=== PATIENT | male | born 1945 | race Caucasian/White ===

== ENCOUNTER 2022-05-17 18:23 | Inpatient (IN) | payer MEDICARE ==
[2022-05-17] MEDS ORDERED: Ondansetron ODT 4 MG TAB PO PRN (21:04)
[2022-05-17] MEDS ORDERED: Ondansetron PF 4 MG/2 ML Vial IVP PRN (21:04)
[2022-05-17] MEDS ORDERED: Acetaminophen 650 MG Suppository PR PRN (21:04)
[2022-05-17] MEDS ORDERED: Bisacodyl 5 MG TAB PO PRN (21:04)
[2022-05-17] MEDS ORDERED: Guaifenesin DM 100-10/5 ML UDCUP PO PRN (21:04)
[2022-05-17] MEDS: Sodium Chloride 0.9% 1,000 ML IV SCH (21:52)
[2022-05-17] MEDS ORDERED: Methocarbamol 500 MG TAB PO PRN (22:50)
[2022-05-17] MEDS ORDERED: Acetaminophen/Codeine 30-300mg Tablet PO PRN (22:51)
[2022-05-17] MEDS ORDERED: Gabapentin 300 MG CAP PO SCH (23:00)
[2022-05-17 23:17] VITALS: BMI 16.1
[2022-05-18] MEDS: cefTRIAXone\\ROCEPHIN 1 GM in Sodium Chloride 0.9% 100 ML IVPB SCH (04:39)
[2022-05-18 05:25] LABS: #Eosinphils 0.5 thou/uL (0.0-0.7); #Lymphocytes 1.2 thou/uL (1.20-3.40); #Monocytes 0.6 thou/uL (0.11-0.59); #Neutrophils 3.8 thou/uL (1.40-6.50); %Basophils 0.4 % (0.0-1.0); %Eosinophils 7.7 % (0.0-10.0); %Lymphocytes 19.4 % (21.0-51.0); %Monocytes 10.2 % (0.0-10.0); %Neutrophils 62.3 % (42.0-75.0); Hemoglobin 10.7 g/dL (14.0-18.0); Mean Corpuscular HGB CONC 33.3 g/dL (32.0-36.0); Mean Corpuscular Hemoglobin 32.1 pg (27.0-31.0); Mean Corpuscular Volume 96.5 fL (78.0-98.0); Mean Platelet Volume 7.6 fL (7.4-10.4); Platelet Count 227 thou/uL (130-400); Red Blood Cell (RBC) Count 3.34 mill/uL (4.70-6.10); White Blood Cell (WBC) Count 6.2 thou/uL (4.8-10.8)
[2022-05-18 06:10] LABS: Sodium 138 mmol/L (136-145)
[2022-05-18 06:11] LABS: Anion Gap 12 mmol/L (10-20); BUN (Urea Nitrogen) 20 mg/dL (8.4-25.7); Calc. Creatinine Clearance 52 mL/min (70-130); Calcium 9.2 mg/dL (7.8-10.44); Carbon Dioxide 25 mmol/L (23-31); Chloride 105 mmol/L (98-107); Estimated GFR 93; Glucose 96 mg/dL (83-110); Potassium 3.7 mmol/L (3.5-5.1)
[2022-05-18] MEDS: Gabapentin 300 MG CAP PO SCH ×2 (09:34→20:30)
[2022-05-18] MEDS ORDERED: Aspirin 81 mg Enteric Coated Tablet PO SCH (15:00)
[2022-05-18] MEDS: Midodrine HCl 5 MG TAB PO SCH ×2 (15:50→20:31)
[2022-05-18] MEDS: Sodium Chloride 0.9% 1,000 ML IV SCH (20:31)
[2022-05-18] MEDS ORDERED: Simvastatin 10 MG TAB PO SCH (21:00)
[2022-05-19] MEDS: cefTRIAXone\\ROCEPHIN 1 GM in Sodium Chloride 0.9% 100 ML IVPB SCH (04:38)
[2022-05-19] MEDS: Gabapentin 300 MG CAP PO SCH ×2 (08:56→21:24)
[2022-05-19] MEDS: Midodrine HCl 5 MG TAB PO SCH ×3 (08:56→21:24)
[2022-05-19] MEDS: NIFEdipine XL 60 MG TAB PO SCH (08:57)
[2022-05-19] MEDS: Aspirin 81 mg Enteric Coated Tablet PO SCH (08:57)
[2022-05-19] MEDS: Atorvastatin Calcium 10 MG TAB PO SCH (21:24)
[2022-05-20] MEDS: cefTRIAXone\\ROCEPHIN 1 GM in Sodium Chloride 0.9% 100 ML IVPB SCH (04:41)
[2022-05-20] MEDS: Midodrine HCl 5 MG TAB PO SCH ×3 (08:50→21:05)
[2022-05-20] MEDS: Aspirin 81 mg Enteric Coated Tablet PO SCH (08:51)
[2022-05-20] MEDS: Gabapentin 300 MG CAP PO SCH ×2 (08:51→21:05)
[2022-05-20] MEDS: NIFEdipine XL 60 MG TAB PO SCH (08:52)
[2022-05-20] MEDS: Atorvastatin Calcium 10 MG TAB PO SCH (21:05)
[2022-05-21] MEDS: cefTRIAXone\\ROCEPHIN 1 GM in Sodium Chloride 0.9% 100 ML IVPB SCH (03:51)
[2022-05-21] MEDS: Gabapentin 300 MG CAP PO SCH ×2 (08:20→20:45)
[2022-05-21] MEDS: Aspirin 81 mg Enteric Coated Tablet PO SCH (08:21)
[2022-05-21] MEDS: Midodrine HCl 5 MG TAB PO SCH ×3 (08:21→20:46)
[2022-05-21] MEDS ORDERED: Sodium Chloride 0.9% 1,000 ML IV SCH (09:00)
[2022-05-21] MEDS: Atorvastatin Calcium 10 MG TAB PO SCH (20:46)
[2022-05-22] MEDS: cefTRIAXone\\ROCEPHIN 1 GM in Sodium Chloride 0.9% 100 ML IVPB SCH (03:27)
[2022-05-22] MEDS: Midodrine HCl 5 MG TAB PO SCH ×3 (09:38→20:11)
[2022-05-22] MEDS: Aspirin 81 mg Enteric Coated Tablet PO SCH (09:40)
[2022-05-22] MEDS: Gabapentin 300 MG CAP PO SCH ×2 (09:41→20:10)
[2022-05-22] MEDS: Atorvastatin Calcium 10 MG TAB PO SCH (20:12)
[2022-05-23] MEDS: cefTRIAXone\\ROCEPHIN 1 GM in Sodium Chloride 0.9% 100 ML IVPB SCH (04:36)
[2022-05-23] MEDS: Gabapentin 300 MG CAP PO SCH ×2 (09:09→20:34)
[2022-05-23] MEDS: Aspirin 81 mg Enteric Coated Tablet PO SCH (09:09)
[2022-05-23] MEDS: Midodrine HCl 5 MG TAB PO SCH ×3 (09:11→20:34)
[2022-05-23] MEDS: Acetaminophen 325 MG TAB PO PRN (15:58)
[2022-05-23] MEDS: Atorvastatin Calcium 10 MG TAB PO SCH (20:39)
[2022-05-23] MEDS ORDERED: Midodrine HCl 5 MG TAB PO SCH (21:00)
[2022-05-24 05:51] LABS: Phosphorus 3.6 mg/dL (2.3-4.7)
[2022-05-24 05:53] LABS: ALT (SGPT) 34 U/L (8-55); AST (SGOT) 34 U/L (5-34); Albumin 3.3 g/dL (3.4-4.8); Alkaline Phosphatase 90 U/L (40-110); Anion Gap 10 mmol/L (10-20); BUN (Urea Nitrogen) 25 mg/dL (8.4-25.7); Bilirubin, Total 0.3 mg/dL (0.2-1.2); Calc. Creatinine Clearance 50 mL/min (70-130); Calcium 9.3 mg/dL (7.8-10.44); Carbon Dioxide 28 mmol/L (23-31); Chloride 103 mmol/L (98-107); Estimated GFR 92; Globulin 2.8 g/dL (2.4-3.5); Glucose 113 mg/dL (83-110); Potassium 4.3 mmol/L (3.5-5.1); Protein, Total 6.1 g/dL (5.8-8.1); Sodium 137 mmol/L (136-145)
[2022-05-24] MEDS: Gabapentin 300 MG CAP PO SCH ×2 (10:15→23:14)
[2022-05-24] MEDS: Aspirin 81 mg Enteric Coated Tablet PO SCH (10:16)
[2022-05-24] MEDS: Midodrine HCl 5 MG TAB PO SCH ×3 (10:16→23:15)
[2022-05-24] MEDS: Atorvastatin Calcium 10 MG TAB PO SCH (23:42)
[2022-05-25] MEDS ORDERED: Midodrine HCl 5 MG TAB PO SCH ×4 (09:43→15:00)
[2022-05-25] MEDS: Aspirin 81 mg Enteric Coated Tablet PO SCH (10:00)
[2022-05-25] MEDS: Acetaminophen 325 MG TAB PO PRN (10:01)
[2022-05-25] MEDS: Gabapentin 300 MG CAP PO SCH (10:01)
[2022-05-25] MEDS: Midodrine HCl 5 MG TAB PO SCH (10:26)
[2022-05-25 13:05] VITALS: TEMP 97.6
[2022-05-25 14:56] VITALS: BP 169/80
[2022-05-26] MEDS ORDERED: Fludrocortisone Acetate 0.1 MG TAB PO SCH (09:00)
== END 2022-05-25 19:20 | DRG 312 ==
LOC: NEURO 18:23 → OBSVTOIN 05-19 16:23 → SURG B 05-25 12:10
PROVIDERS: ADMIT Family Medicine; ATTEND Family Medicine
DX: I95.1 Orthostatic hypotension (principal); E43 Unspecified severe protein-calorie malnutrition; N39.0 Urinary tract infection, site not specified; R64 Cachexia; Z68.1 Body mass index [BMI] 19.9 or less, adult; Z20.822 Contact with and (suspected) exposure to COVID-19; I25.10 Atherosclerotic heart disease of native coronary artery without angina pectoris; I10 Essential (primary) hypertension; E78.5 Hyperlipidemia, unspecified; R00.1 Bradycardia, unspecified; R56.9 Unspecified convulsions; I08.1 Rheumatic disorders of both mitral and tricuspid valves; I25.2 Old myocardial infarction; Z95.5 Presence of coronary angioplasty implant and graft; Z79.899 Other long term (current) drug therapy; Z79.82 Long term (current) use of aspirin; Z90.89 Acquired absence of other organs; Z82.49 Family history of ischemic heart disease and other diseases of the circulatory system; Z82.3 Family history of stroke; Z83.49 Family history of other endocrine, nutritional and metabolic diseases; Z80.9 Family history of malignant neoplasm, unspecified
CPT/HCPCS: 36415; 70551; 72100; 80048; 80053; 84100; 85025; 93306; 93880; 95712; 95819; 95957; 96374; 96376; G0378; J0696; J3490; J7050; U0003; U0005

== ENCOUNTER 2022-06-04 14:15 | Inpatient (IN) | payer MEDICARE, OTHER ==
[2022-06-04] MEDS ORDERED: hydrALAZINE 20 MG/ML VIAL ONE (15:04)
[2022-06-04 15:35] LABS: #Eosinphils 0.2 thou/uL (0.0-0.7); #Lymphocytes 1.6 thou/uL (1.20-3.40); #Monocytes 0.6 thou/uL (0.11-0.59); #Neutrophils 4.3 thou/uL (1.40-6.50); %Basophils 0.2 % (0.0-1.0); %Eosinophils 3.1 % (0.0-10.0); %Lymphocytes 23.8 % (21.0-51.0); %Monocytes 8.6 % (0.0-10.0); %Neutrophils 64.3 % (42.0-75.0); Hemoglobin 12.2 g/dL (14.0-18.0); Mean Corpuscular HGB CONC 33.6 g/dL (32.0-36.0); Mean Corpuscular Hemoglobin 31.2 pg (27.0-31.0); Platelet Count 171 thou/uL (130-400); RBC Distribution Width 12.4 % (11.5-14.5); White Blood Cell (WBC) Count 6.6 thou/uL (4.8-10.8)
[2022-06-04 15:53] LABS: Phosphorus 2.7 mg/dL (2.3-4.7)
[2022-06-04 15:58] LABS: ALT (SGPT) 40 U/L (8-55); AST (SGOT) 56 U/L (5-34); Alkaline Phosphatase 85 U/L (40-110); Anion Gap 19 mmol/L (10-20); BUN (Urea Nitrogen) 27 mg/dL (8.4-25.7); Calc. Creatinine Clearance 0 mL/min (70-130); Calcium 9.9 mg/dL (7.8-10.44); Carbon Dioxide 25 mmol/L (23-31); Chloride 101 mmol/L (98-107); Estimated GFR 79; Globulin 4.2 g/dL (2.4-3.5); Glucose 102 mg/dL (83-110); Magnesium 1.7 mg/dL (1.6-2.6); Protein, Total 8.2 g/dL (5.8-8.1); Sodium 140 mmol/L (136-145)
[2022-06-04] MEDS ORDERED: Acetaminophen 325 MG TAB PO PRN (18:24)
[2022-06-04] MEDS ORDERED: Ondansetron PF 4 MG/2 ML Vial IVP PRN (18:24)
[2022-06-04] MEDS ORDERED: Melatonin 3 MG TAB PO PRN (18:33)
[2022-06-04] MEDS ORDERED: hydrALAZINE 20 MG/ML VIAL SLOW IVP PRN (18:34)
[2022-06-04 20:43] VITALS: BMI 16.8
[2022-06-04] MEDS: Simvastatin 10 MG TAB PO SCH (21:12)
[2022-06-04] MEDS: Sodium Chloride 0.9% 1,000 ML IV SCH (21:12)
[2022-06-05 04:52] LABS: #Eosinphils 0.3 thou/uL (0.0-0.7); #Lymphocytes 1.6 thou/uL (1.20-3.40); #Monocytes 0.6 thou/uL (0.11-0.59); #Neutrophils 3.1 thou/uL (1.40-6.50); %Basophils 0.5 % (0.0-1.0); %Eosinophils 5.1 % (0.0-10.0); %Lymphocytes 28.3 % (21.0-51.0); %Monocytes 10.3 % (0.0-10.0); %Neutrophils 55.9 % (42.0-75.0); Hemoglobin 11.1 g/dL (14.0-18.0); Mean Corpuscular HGB CONC 33.5 g/dL (32.0-36.0); Mean Corpuscular Hemoglobin 31.9 pg (27.0-31.0); Mean Corpuscular Volume 95.4 fL (78.0-98.0); Mean Platelet Volume 7.8 fL (7.4-10.4); Platelet Count 158 thou/uL (130-400); RBC Distribution Width 12.2 % (11.5-14.5); Red Blood Cell (RBC) Count 3.48 mill/uL (4.70-6.10); White Blood Cell (WBC) Count 5.6 thou/uL (4.8-10.8)
[2022-06-05 05:18] LABS: ALT (SGPT) 31 U/L (8-55); AST (SGOT) 32 U/L (5-34); Albumin 3.8 g/dL (3.4-4.8); Alkaline Phosphatase 73 U/L (40-110); Anion Gap 12 mmol/L (10-20); BUN (Urea Nitrogen) 23 mg/dL (8.4-25.7); Bilirubin, Total 1.2 mg/dL (0.2-1.2); Calc. Creatinine Clearance 50 mL/min (70-130); Calcium 9.3 mg/dL (7.8-10.44); Carbon Dioxide 30 mmol/L (23-31); Chloride 104 mmol/L (98-107); Estimated GFR 90; Glucose 90 mg/dL (83-110); Protein, Total 6.8 g/dL (5.8-8.1); Sodium 143 mmol/L (136-145)
[2022-06-05 05:27] LABS: Hemoglobin A1c 5.1 % (4.0-6.0)
[2022-06-05] MEDS: Aspirin 81 mg Enteric Coated Tablet PO SCH (08:13)
[2022-06-05] MEDS: Senokot S 8.6-50 MG TAB PO SCH (08:13)
[2022-06-05] MEDS: Fludrocortisone Acetate 0.1 MG TAB PO SCH (08:13)
[2022-06-05 10:10] LABS: Triglycerides 65 mg/dL (Less than 150)
[2022-06-05 10:13] LABS: Phosphorus 2.7 mg/dL (2.3-4.7)
[2022-06-05 10:15] LABS: Cholesterol 151 mg/dl (< 200 Desired); HDL Cholesterol 51 mg/dL (>60 Neg Risk); LDL Cholesterol, Calculated 87 mg/dL; Magnesium 1.6 mg/dL (1.6-2.6)
[2022-06-05 10:47] LABS: Bacteria/HPF None Seen HPF (None Seen); Bilirubin Negative (Negative); Blood, Urine Negative (Negative); Clarity Clear (Clear); Glucose, Urine (Dipstick) Normal (Negative); Ketone, Urine Negative (Negative); Leukocyte Negative Leu/uL (Negative); Nitrite Negative (Negative); Protein, Urine (Dipstick) Negative (Neg-Trace); RBC/HPF 0-3 HPF (0-3); Specific Gravity, Urine 1.025 (1.002-1.036); Squamous Epithelial 0-3 HPF (0-3); WBC/HPF 0-3 HPF (0-3); pH, Urine 6.5 (5.0-9.0)
[2022-06-05 10:49] LABS: Urine Culture Reflex No No
[2022-06-05] MEDS: Sodium Chloride 0.9% 1,000 ML IV SCH ×2 (11:59→23:46)
[2022-06-05] MEDS ORDERED: Magnesium Sulfate 3 GM in Sodium Chloride 0.9% 100 ML IVPB SCH (16:30)
[2022-06-05] MEDS ORDERED: Potassium Chloride 20 MEQ TAB PO SCH (17:00)
[2022-06-05] MEDS: Simvastatin 10 MG TAB PO SCH (21:35)
[2022-06-05] MEDS: levETIRAcetam 500 MG TAB PO SCH (21:35)
[2022-06-06] MEDS: Aspirin 81 mg Enteric Coated Tablet PO SCH (09:25)
[2022-06-06] MEDS: Fludrocortisone Acetate 0.1 MG TAB PO SCH (09:25)
[2022-06-06] MEDS: levETIRAcetam 500 MG TAB PO SCH (09:26)
[2022-06-06] MEDS: Senokot S 8.6-50 MG TAB PO SCH (09:26)
[2022-06-06 09:28] LABS: Anion Gap 12 mmol/L (10-20); BUN (Urea Nitrogen) 15 mg/dL (8.4-25.7); Calc. Creatinine Clearance 55 mL/min (70-130); Calcium 8.7 mg/dL (7.8-10.44); Carbon Dioxide 27 mmol/L (23-31); Chloride 106 mmol/L (98-107); Estimated GFR 93; Glucose 122 mg/dL (83-110); Potassium 3.4 mmol/L (3.5-5.1); Sodium 142 mmol/L (136-145)
[2022-06-06] MEDS ORDERED: Potassium Chloride 20 MEQ TAB PO SCH (09:45)
[2022-06-06 15:59] VITALS: TEMP 98
[2022-06-06 21:26] VITALS: BP 153/72
== END 2022-06-06 18:32 | DRG 65 ==
LOC: ERS 14:15 → 2SW 17:52 → OBSVTOIN 06-05 08:55
PROVIDERS: ADMIT Internal Medicine; ATTEND Internal Medicine
DX: I63.9 Cerebral infarction, unspecified (principal); R29.700 NIHSS score 0; Z66 Do not resuscitate; Z51.5 Encounter for palliative care; Z20.822 Contact with and (suspected) exposure to COVID-19; N39.0 Urinary tract infection, site not specified; E44.0 Moderate protein-calorie malnutrition; Z68.1 Body mass index [BMI] 19.9 or less, adult; R64 Cachexia; I10 Essential (primary) hypertension; E78.5 Hyperlipidemia, unspecified; I25.10 Atherosclerotic heart disease of native coronary artery without angina pectoris; I95.1 Orthostatic hypotension; R56.9 Unspecified convulsions; E83.42 Hypomagnesemia; E87.6 Hypokalemia; Z95.5 Presence of coronary angioplasty implant and graft; Z87.891 Personal history of nicotine dependence; Z79.899 Other long term (current) drug therapy; Z79.82 Long term (current) use of aspirin
CPT/HCPCS: 36415; 70450; 70551; 80048; 80053; 80061; 81001; 83036; 83735; 84100; 84134; 84146; 84443; 84484; 85025; 93005; 95712; 95819; 95957; 96374; J0360; J3475; J3490; J7050; U0003; U0005